=== PATIENT | female | born 1995 | race Caucasian/White ===

== ENCOUNTER 2016-09-26 16:19 | Emergency (ER) | payer SELFPAY ==
[~2016-09-26 16:19] MED LIST: AMOXICILLIN PO; BENTYL20 M1 PO; HYDROCORTISON28.4 G3 TOP; NO MEDICATIONS; PREDNISONE PO; ZOFRAN PO; ZYRTEC PO
== END 2016-09-26 17:40 | disposition home or self-care (01) ==
LOC: CED 16:19 → CFTX 16:19
DX: J06.9 Acute upper respiratory infection, unspecified (principal)
CPT/HCPCS: 84703; 87651; 99283